=== PATIENT | male | born 1990 | race African-American/Black ===

== ENCOUNTER 2019-08-27 10:26 | Emergency (ER) | payer MEDICAID ==
[~2019-08-27] VITALS: Ht 175.3 cm; Wt 82.0 kg
--- NOTE | 2019-08-27 10:39 | NUR ---
pt ambulated to bathroom with a steady gait.
[2019-08-27] MEDS ORDERED: AZITHROMYCIN 500 MG TABLET PO ONE (11:00)
[2019-08-27] MEDS ORDERED: CEFTRIAXONE 250 MG IM ONE (11:00)
--- NOTE | 2019-08-27 11:43 | NUR ---
Urine obtained. Patient given discharge instructions and they have confirmed that they understand the instructions. pt verablized that he will script as recommended and wait for follow up call. Patient ambulatory with steady gait.
== END 2019-08-27 11:46 | disposition home or self-care (01) ==
LOC: ED 11:35
DX: A59.9 Trichomoniasis, unspecified (principal); F17.200 Nicotine dependence, unspecified, uncomplicated
CPT/HCPCS: 99283